=== PATIENT | male | born 1980 | race Two or more races ===

== ENCOUNTER 2025-06-07 08:48 | Emergency (ER) | payer MEDICARE, OTHER ==
[~2025-06-07] VITALS: Ht 172.7 cm; Wt 95.4 kg
--- NOTE | 2025-06-07 10:18 | ED.PDOC ---
History of Present Illness HPI Comments A 45 YEAR OLD MALE BROUGHT IN BY AMBULANCE PRESENTS TO THE ED WITH COMPLAINT OF ANXIETY AND UTI SYMPTOMS. PATIENT STATES HE HAS A HISTORY OF ANXIETY HAS BEEN ONSET HAS BEEN WORSE OVER THE LAST 1 WEEK. PATIENT REPORTS HE TOOK ATIVAN EARLIER TODAY TO MANAGE HIS ANXIETY, BUT NOTES THERE WAS NO IMPROVEMENT. PATIENT REPORTS HE HAS BEEN TAKING MORE OF HIS PSYCH MEDICATIONS AND HAS BEEN INCREASINGLY SHAKY AND ANXIOUS A RESULT. PATIENT NOTES HE HAS ALSO BEEN EXPERIENCING PAINFUL URINATION A FOUL URINE ODOR FOR THE PAST 1 WEEK AND NOTES HE HAS A HISTORY OF UTIS DUE TO HIS HISTORY OF PARAPLEGIA. PATIENT DENIES SI, HI, HEMATURIA, FEVER, CHILLS, SHORTNESS OF BREATH, CHEST PAIN, ABDOMINAL PAIN, NAUSEA, VOMITING, HEADACHE, OR OTHER COMPLAINTS. NO OTHER SYMPTOMS OR MODIFYING FACTORS AT THIS TIME. PATIENT IS ALERT, ORIENTED X 4, AND HAS STEADY GAIT. Chief Complaint: Anxiety Time Seen by MD: 09:06 Reviewed Notes: Nurses Notes, Conveyor Installer Notes, Medications, Allergies Allergies: Coded Allergies: Penicillins (Verified Allergy, Unknown, 06/07/25) Home Meds Active Scripts Ciprofloxacin Hcl (Cipro) 500 Mg Tab, 1 TAB PO BID, #20 TAB Prov:ADALI YANEZ 06/07/25 Lorazepam (Lorazepam) 1 Mg Tab, 1 TAB PO BID, #12 TAB Prov:ADALI YANEZ 06/07/25 Discontinued Scripts Sulfamethoxazole W/Trimethopri (Bactrim Ds Tablet) 1 Tab Tb, 1 TAB PO BID for 10 Days, #20 TAB Prov:ADALI YANEZ 06/07/25 Information Source: Patient, Emergency Med Personnel Mode of Arrival: EMS Severity: Moderate Timing: Days Duration: Since onset, Days Prehospital treatment: None Medication Refill: For: Other (ANXIETY AND UTI SYMPTOMS) Past Medical History PAST MEDICAL HISTORY: Anxiety, UTI'S Past Medical History (Other): PARAPLEGIA, BIPOLAR DISODER Surgical History: Denies all surgeries Family History Family History: Reviewed,noncontributory to illness Social History Smoker: Non-Smoker Alcohol: Denies ETOH Use Drugs: Denies Drug Use Lives In: Home Constitutional: reports: others (ANXIOUS ); denies: chills, diaphoresis, fatigue, fever, malaise, sweats, weakness EENTM: denies: blurred vision, double vision, ear bleeding, ear discharge, ear drainage, ear pain, ear ringing, eye pain, eye redness, hearing loss, mouth pain, mouth swelling, nasal discharge, nose bleeding, nose congestion, nose pain, photophobia, tearing, throat pain, throat swelling, voice changes, others Respiratory: denies: cough, hemoptysis, orthopnea, SOB at rest, shortness of breath, SOB with excertion, stridor, wheezing, others Cardiovascular: denies: chest pain, dizzy spells, diaphoresis, Dyspnea on exertion, edema, irregular heart beat, left arm pain, lightheadedness, palpitations, PND, syncope, others Gastrointestinal: denies: abdomen distended, abdominal pain, blood streaked bowels, constipated, diarrhea, dysphagia, difficulty swallowing, hematemesis, melena, nausea, poor appetite, poor fluid intake, rectal bleeding, rectal pain, vomiting, others Genitourinary: reports: burning, dysuria; denies: flank pain, frequency, hematuria, incontinence, penile discharge, penile sore, pain, testicle pain, testicle swelling, urgency, others Neurological: denies: dizziness, fainting, headache, left sided numbness, left sided weakness, numbness, paresthesia, pre-existing deficit, right sided numbness, right sided weakness, seizure, speech problems, tingling, tremors, weakness, others Musculoskeletal: denies: back pain, gout, joint pain, joint swelling, muscle pain, muscle stiffness, neck pain, others Integumetry: denies: bruises, change in color, change in hair/nails, dryness, laceration, lesions, lumps, rash, wounds, others Hematologic/Lymphatic: denies: anemia, blood clots, easy bleeding, easy bruising, swollen glands, others Endocrine: denies: excessive hunger, excessive sweating, excessive thirst, excessive urination, flushing, intolerance to cold, intolerance to heat, unexplained weight gain, unexplained weight loss, others Psychiatric: reports: anxiety; denies: bipolar disorder, depression, hopeless, panic disorder, schizophrenia, sleepless, suicidal, others All Other Systems: Reviewed and Negative Physical Exam General Appearance: No Apparent Distress, Obese, Other (ANXIOUS ) HEENT: Normal ENT Inspection, PERRL/EOMI, Pharynx Normal, TMs Normal Neck: Full Range of Motion, Non-Tender, Normal, Normal Inspection Respiratory: Chest Non-Tender, Lungs Clear, No Accessory Muscle Use, No Respiratory Distress, Normal Breath Sounds Cardiovascular: No Edema, No JVD, No Murmur, No Gallop, Normal Peripheral Pulses, Regular Rate/Rhythm Breast Exam: Deferred Gastrointestinal: No Organomegaly, Non Tender, No Pulsatile Mass, Normal Bowel Sounds, Soft Genitalia: Deferred Pelvic: Deferred Rectal: Deferred Extremities: No calf tenderness, Normal capillary refill, Normal inspection, Normal range of motion, Non-tender, No pedal edema Musculoskeletal : Apperance: Normal Neurologic: Alert, motion picture commentator II-XII nml as Tested, No Motor Deficits, Normal Affect, Normal Mood, No Sensory Deficits Cerebellar Function: Normal Reflexes: Normal Skin: Dry, Normal Color, Warm Peripheral Pulses: 2+ carotid (R), 2+ carotid (L) Lymphatic: No Adenopathy Was a procedure done? Was a procedure done?: No Differential Dx Considerations may include: ANXIETY REACTION, HYPERVENTILATION SYNDROME, UTI, ACUTE CYSTITIS, UTI SYMPTOMS X-Ray, Labs, Meds, VS Vital Signs Date Time Temp Pulse Resp B/P (MAP) Pulse Ox O2 Delivery O2 Flow Rate FiO2 06/07/25 12:02 98.2 85 20 107/74 (85) 97 98.2 06/07/25 12:02 85 20 97 Room Air 06/07/25 08:48 97.5 90 18 136/86 99 97.5 Lab Test 06/07/25 10:24 06/07/25 10:14 Range/Units Urine Color Yellow Yellow Urine Clarity Clear Clear Urine pH 5.5 5.0-9.0 Urine Specific [place] 1.022 1.001-1.035 Urine Protein Negative Negative Urine Ketones 1+ H Negative Urine Blood Negative Negative /uL Urine Nitrite 2+ H Negative Urine Bilirubin Negative Negative Urine Urobilinogen Normal Negative mg/dL Urine Leukocyte Esterase 1+ Negative /uL Urine RBC 1 0 - 3 /hpf Urine Microscopic WBC 32 H 0-3 /HPF Urine Squamous Epithelial Cells Few <5 /hpf Urine Bacteria Many H None Seen /hpf Urine Mucus Few None Seen Urine Glucose Normal Normal mg/dL Urine Opiates Screen Neg NEGATIVE Urine Fentanyl Screen Neg NEGATIVE Urine Barbiturates Screen Neg NEGATIVE Urine Phencyclidine Screen Neg NEGATIVE Urine Amphetamines Screen Neg NEGATIVE Urine Benzodiazepines Screen Neg NEGATIVE Urine Cocaine Screen Neg NEGATIVE Urine Cannabinoids Screen Neg NEGATIVE Current Medications Medications (Trade) Dose Ordered Sig/Dulce Route Start Time Stop Time Status Last Admin Ketorolac Tromethamine (Toradol Injection) 60 mg ONCE ONCE IM 06/07/25 11:15 06/07/25 11:16 DC 06/07/25 11:15 Diphenhydramine HCl (Benadryl Injection) 50 mg ONCE ONCE IM 06/07/25 11:15 06/07/25 11:16 DC 06/07/25 11:15 X-Ray, Labs, Meds, VS Comment EXTERNAL MEDICAL RECORDS REVIEWED: [NONE] INDEPENDENT HISTORIANS: [NONE] SOCIAL DETERMINANTS OF HEALTH: [NONE] LABS ORDERED: UA REVIEWED AND INTERPRETED RESULTS: PATIENT COULD NOT PROVIDE URINE HERE IN THE ED, BUT STILL REQUESTED ANTIBIOTICS TO TREAT A POTENTIAL UTI DUE TO HIM USING A STRAIGHT CATHETER EVERYDAY. IMAGING ORDERED: NONE TREATMENTS ORDERED: TORADOL 60MG IM, BENADRYL 50MG IM PROCEDURES PERFORMED: NONE CRITICAL CARE TIME: NONE I HAVE DISCUSSED THE PATIENT WITH THE ATTENDING PHYSICIAN DR. العلي AND HE AGREES WITH THE PATIENT'S PLAN OF CARE AND DISPOSITION. BASED ON HISTORY OF PRESENT ILLNESS, AND PHYSICAL EXAM, PATIENT WILL BE DISCHAR GED HOME. DISCUSSED PLAN FOR DISCHARGE HOME WITH RX [CIPRO 500MG AND ATIVAN]. MEDICATION WARNINGS GIVEN. SHARED DECISION MAKING: PATIENT INSTRUCTED TO FOLLOW UP WITH PRIMARY CARE PROVIDER IN 1-2 DAYS FOR RE-EVALUATION OF SYMPTOMS. PATIENT VERBALIZES UNDE RSTANDING TO RETURN TO ED FOR NEW OR WORSENING SYMPTOMS OR IF FOLLOW UP WITH PCP CANNOT BE OBTAINED. PATIENT FEELS COMFORTABLE GOING HOME AT THIS TIME. ALL QUESTIONS ADDRESSED AT TIME OF DISCHARGE. Time of 1ST Reevaluation: 13:15 Reevaluation 1ST: Improved Patient Education/Counseling: Diagnosis, Treatment, Need For Follow Up Family Education/Counseling: Diagnosis, Treatment, Need For Follow Up Medical Screening: No EMC Exist At This Time SEPSIS Sepsis Screen Date sepsis recognized/suspect: Jun 07, 2025 Time Sepsis recognized/suspect: 847 Recent Procedure: No On Antibiotic Therapy: No Respiratory Rate >20: No Heart Rate >90: No Temp<36 C (96.8 F) or >38.3 C: No SBP <90 or MAP <65 mmHG: No New Acute Mental Status Change: No Is the patient on CPAP, BIPAP,: No Vital Signs Date Time Temp Pulse Resp B/P (MAP) Pulse Ox O2 Delivery O2 Flow Rate FiO2 06/07/25 12:02 98.2 85 20 107/74 (85) 97 98.2 06/07/25 12:02 85 20 97 Room Air 06/07/25 08:48 97.5 90 18 136/86 99 97.5 Medications Medications Dose Ordered Sig/Dulce Route Start Time Stop Time Status Last Admin Dose Admin Diphenhydramine HCl 50 mg ONCE ONCE IM 06/07/25 11:15 06/07/25 11:16 DC 06/07/25 11:15 Ketorolac Tromethamine 60 mg ONCE ONCE IM 06/07/25 11:15 06/07/25 11:16 DC 06/07/25 11:15 Departure 1 Departure Time of Disposition: 13:15 Impression: Primary Impression: Anxiety reaction Additional Impression: Acute UTI (urinary tract infection) Disposition: HOME / SELF CARE / HOMELESS Condition: Stable Additional Instructions: FOLLOW-UP WITH PCP IN 1 TO 2 DAYS. TAKE MEDICATIONS PRESCRIBED. RETURN TO ED FOR ANY NEW OR WORSENING SYMPTOMS. e-Prescriptions Ciprofloxacin Hcl (Cipro) 500 Mg Tab 1 TAB PO BID, #20 TAB Prov: ADALI YANEZ 06/07/25 Lorazepam (Lorazepam) 1 Mg Tab 1 TAB PO BID, #12 TAB Prov: ADALI YANEZ 06/07/25 Discharged With: Self, Spouse Critical Care Note Critical Care Time?: No Stability Stability form required: No I personally scribed for ADALI YANEZ ([email or web address]) on 06/07/25 at 10:18. Electronically submitted by Jonathon Scott ([employer] I personally scribed for ADALI YANEZ ([email or web address]) on 06/07/25 at 10:20. Electronically submitted by Jonathon Scott ([employer] I personally scribed for ADALI YANEZ ([email or web address]) on 06/07/25 at 11:18. Electronically submitted by Jonathon Scott ([employer] I personally scribed for ADALI YANEZ ([email or web address]) on 06/07/25 at 13:09. Electronically submitted by Jonathon Scott ([employer] ADALI YANEZ Jun 07, 2025 10:18
[2025-06-07] MEDS ORDERED: LORazepam 0.5 MG TAB PO ONE (10:30)
[2025-06-07] MEDS ORDERED: BACDST PO (11:12)
[2025-06-07] MEDS: diphenhdrAMINE HCL 50 MG/1 ML VL IM ONE (11:15)
[2025-06-07] MEDS: KETOROLAC TROMETH 60MG/2ML VIAL IM ONE (11:15)
[2025-06-07 12:02] VITALS: BP 107/74; PULSE 85; RESP 20; TEMP 98.2; O2SAT 97
[2025-06-07] MEDS ORDERED: LORA-1123 PO (12:27)
[2025-06-07] MEDS ORDERED: CIPR-173 PO (12:29)
[2025-06-07 12:30] LABS: Amphetamine Screen, Urine Neg (NEGATIVE); Barbiturate Scree,Urine Neg (NEGATIVE); Benzodiazephine Screen, Urine Neg (NEGATIVE)
[2025-06-07 12:31] LABS: Cannabinoid Screen, Urine Neg (NEGATIVE); Cocaine Screen, Urine Neg (NEGATIVE); Opiate Scree,Urine Neg (NEGATIVE); Phencyclidine Screen, Urine Neg (NEGATIVE)
[2025-06-07 13:02] LABS: Urine Protein, UAD Negative (Negative)
== END 2025-06-07 13:11 | disposition home or self-care (01) ==
LOC: EDBD 08:48 → ER 08:48
DX: F41.9 Anxiety disorder, unspecified (principal); N39.0 Urinary tract infection, site not specified; G82.20 Paraplegia, unspecified; Z79.899 Other long term (current) drug therapy; Z87.440 Personal history of urinary (tract) infections; Z88.0 Allergy status to penicillin
CPT/HCPCS: 80307; 81001; 96372; 99284; J1200; J1885